=== PATIENT | male | born 1940 | race Caucasian/White ===

== ENCOUNTER 2020-10-14 13:41 | Emergency (ER) | payer OTHER, MEDICARE, SELFPAY ==
[2020-10-14] VITALS (43 sets, daily range): BP systolic 131–145; BP diastolic 58–66; PULSE 74–85; RESP 12–25; TEMP 36.5; O2SAT 93–98
--- NOTE | 2020-10-14 13:45 | RT.EKG_ITS ---
APPROVED REPORT Exam: Resting ECG Reason for Exam: confusion, weakness Patient Location: E HR:85 bpm ECG Measurements Heart Rate 85 AXIS MO 178 P 44 QRSd 86 QRS -37 QT 344 T 54 QTc 410 Conclusion Sinus rhythm...normal P axis, V-rate 60- 99 Left axis deviation...QRS axis (-30,-90) sinus rhythm at 85, left axis, TW flattening aVL, non-diagnostic EKG
--- NOTE | 2020-10-14 14:24 | W.ED.GENAD ---
Discharge Plan Disposition Patient Disposition: HOME Condition: Good Discharge Details Clinical Impression: URI (upper respiratory infection) Primary Care Provider: Lorelei Ramos ED Provider: Keagan Mcneal Home Meds and New Rx's Prescriptions: New doxycycline hyclate 100 mg capsule 100 mg PO BID 10 Days Qty: 20 RF: 0 Discharge Instructions Instructions: Upper Respiratory Infection (ED) Additional Instructions: At this time as we discussed together there is no clear evidence of pneumonia or urinary tract infection or other significant source of infectious etiology or cause of his intermittent abdominal pain. His hernia does not show signs of incarceration or strangulation at this time. He does have a mild upper respiratory infection which is likely viral in etiology. Covid test is negative. If he continues to have this and it transitions to his lungs he could develop an infectious pneumonia. Additionally we are still awaiting on the tick and Lyme disease panel for him. This will take a few days to come back. In the meantime please continue to monitor him closely. If he continues to have a fever over the next 24 to 48 hours I would recommend starting with doxycycline antibiotic. Otherwise I would hold off as there is no clear indication at this time. If you notice any worsening of your symptoms, or any new symptoms such as vomiting, diarrhea, fever, chills, shortness of breath, chest pain, numbness, weakness, or fainting , please return immediately to the emergency department for reevaluation. Please follow up with your primary care provider as soon as possible for reassessment and reevaluation. As always, it was a pleasure participating in your medical care today. Referrals: Lorelei Ramos [Primary Care Provider] - Discharge Data Discharge Date/Time-TO BE ENTERED AT DEPARTURE: 10/14/20 19:15 Medical Decision Making <Xochitl Koehler MD - Last Filed: 10/19/20 06:27> Randall Danielle is a 80 y/o man with h/o DM, severe alzheimers who presented to the emergency department with progressively worsening generalized weakness, apparent pain of unknown source, increased confusion, and fever 100.9 at home this am. Pt is pleasant, responds with one word answers on exam, which is at baseline according to Pt's caregiver who is at bedside. Mild TTP across lower abdomen. LCTAB. Unlcear etiology of fever. Concern for PNA, acute intra-abdominal process, UTI, other. Doubt PE, doubt ACS. Exam/hx at this time not c/w sepsis, acute aortic pathology, meningitis. EKG non-diagnostic. Plan for IV placement, screening labs, UA, CT chest/abd/pelv, IV fluid hydration. Will hold abx at this time awaiting source. If no source determined will send tick panel. Pt signed out to Dr. Mcneal at time of shift change with CT pending. Medical Records Medical records reviewed: Yes I reviewed the patient's medical records. Lab Data Lab results reviewed: Yes I reviewed the patient's lab results. Labs: 10/14/20 14:18 Blood Blood Culture - Pending 10/14/20 14:33 Blood Blood Culture - Pending Laboratory Tests Range/Units 10/14/20 10/14/20 10/14/20 14:33 14:33 14:35 WBC (4.4-10.8) 10^3/uL 13.96 H RBC (4.36-5.78) 10^6/uL 3.69 L Hgb (13.5-17.5) g/dL 11.4 L Hct (40.0-50.0) % 34.9 L MCV (80-95) fL 94.6 MCH (27.0-33.0) pg 30.9 MCHC (32.0-36.0) % 32.7 RDW (11.8-14.1) % 11.9 Plt Count (130-400) 10^3/uL 283 MPV (8.0-11.0) fL 9.9 Immature Gran % 0.4 Neutrophils % 74.1 Lymphocytes % 15.0 Monocytes % 7.2 Eosinophils % 2.9 Basophils % 0.4 Nucleated RBC % % 0 Absolute Neutrophils (1.2-6.7) 10^3/uL 10.34 H Absolute Lymphocytes (1.2-3.4) 10^3/uL 2.09 Absolute Monocytes (0.1-0.8) 10^3/uL 1.01 H Absolute Eosinophils (0.0-0.7) 10^3/uL 0.40 Absolute Basophils (0.0-0.2) 10^3/uL 0.06 VBG Lactate (0.6-1.4) mmol/L 2.7 H* Sodium (136-145) mmol/L Potassium (3.5-5.1) mmol/L Chloride (98-107) mmol/L Carbon Dioxide (21.0-32.0) mmol/L Anion Gap (3-11) mmol/L BUN (7-18) mg/dL Creatinine (0.70-1.30) mg/dL Estimated GFR/1.73 m2 (mL/min/1.73m2) Glucose (74-106) mg/dL Calcium (8.5-10.1) mg/dL Magnesium (1.8-2.4) mg/dL Total Bilirubin (0.2-1.0) mg/dL AST (15-37) U/L ALT (16-63) U/L Alkaline Phosphatase (46-116) U/L Troponin I (<0.06) ng/mL < 0.05 Total Protein (6.4-8.2) g/dL Albumin (3.4-5.0) g/dL Urine Color (Yellow) Urine Clarity (Clear) Urine pH (5-8) Ur Specific [place] (1.005-1.025) Urine Protein (Negative) mg/dL Urine Ketones (Negative) mg/dL Urine Blood (Negative) Urine Nitrite (Negative) Urine Bilirubin (Negative) Urine Urobilinogen (Up TO 0.2) EU/dL Ur Leukocyte Esterase (Negative) Urine RBC (0-2) HPF Urine WBC (0-5) HPF Ur Epithelial Cells (Negative) HPF Urine Crystals (Negative) HPF Urine Bacteria (Negative) HPF Urine Casts (Negative) LPF Urine Mucus (Negative) Ur Culture Indicated? Urine Glucose (Negative) mg/dL COVID-19 Source SARS-CoV-2 (PCR) (Negative) Range/Units 10/14/20 10/14/20 10/14/20 14:35 15:04 15:30 WBC (4.4-10.8) 10^3/uL RBC (4.36-5.78) 10^6/uL Hgb (13.5-17.5) g/dL Hct (40.0-50.0) % MCV (80-95) fL MCH (27.0-33.0) pg MCHC (32.0-36.0) % RDW (11.8-14.1) % Plt Count (130-400) 10^3/uL MPV (8.0-11.0) fL Immature Gran % Neutrophils % Lymphocytes % Monocytes % Eosinophils % Basophils % Nucleated RBC % % Absolute Neutrophils (1.2-6.7) 10^3/uL Absolute Lymphocytes (1.2-3.4) 10^3/uL Absolute Monocytes (0.1-0.8) 10^3/uL Absolute Eosinophils (0.0-0.7) 10^3/uL Absolute Basophils (0.0-0.2) 10^3/uL VBG Lactate (0.6-1.4) mmol/L Sodium (136-145) mmol/L 139 Potassium (3.5-5.1) mmol/L 4.9 Chloride (98-107) mmol/L 101 Carbon Dioxide (21.0-32.0) mmol/L 27.7 Anion Gap (3-11) mmol/L 10.3 BUN (7-18) mg/dL 24 H Creatinine (0.70-1.30) mg/dL 1.4 H Estimated GFR/1.73 m2 (mL/min/1.73m2) 49.01 Glucose (74-106) mg/dL 324 H Calcium (8.5-10.1) mg/dL 9.2 Magnesium (1.8-2.4) mg/dL 1.8 Total Bilirubin (0.2-1.0) mg/dL 0.2 AST (15-37) U/L 12 L ALT (16-63) U/L 19 Alkaline Phosphatase (46-116) U/L 66 Troponin I (<0.06) ng/mL Total Protein (6.4-8.2) g/dL 7.9 Albumin (3.4-5.0) g/dL 3.2 L Urine Color (Yellow) Yellow Urine Clarity (Clear) Clear Urine pH (5-8) 5.5 Ur Specific [place] (1.005-1.025) 1.025 Urine Protein (Negative) mg/dL 30 H Urine Ketones (Negative) mg/dL Negative Urine Blood (Negative) Trace-lysed H Urine Nitrite (Negative) Negative Urine Bilirubin (Negative) Negative Urine Urobilinogen (Up TO 0.2) EU/dL 0.2 Ur Leukocyte Esterase (Negative) Negative Urine RBC (0-2) HPF 0-2 Urine WBC (0-5) HPF 0-2 Ur Epithelial Cells (Negative) HPF Rare Urine Crystals (Negative) HPF Negative Urine Bacteria (Negative) HPF Negative Urine Casts (Negative) LPF 0-2 Hyaline Urine Mucus (Negative) Trace Ur Culture Indicated? No Urine Glucose (Negative) mg/dL 500 H COVID-19 Source Nasal/Nares SARS-CoV-2 (PCR) (Negative) Negative ECG Data Attestation: I personally reviewed and interpreted this ECG (s) as follows: Interpretation: EKG shoiws sinus rhythm at 85, left axis, TW flattening aVL, non-diagnostic EKG <Keagan Mcneal, DO - Last Filed: 10/14/20 19:13> Patient was signed out by my colleague Xochitlchristy Koehler. Please refer to her HPI, physical exam assessment and plan. At time of signout we are pending labs and imaging results. For personal reassessment of family, patient, and caregiver the patient has had increased confusion and weakness over the last few days. He was complaining of intermittent abdominal pain over the last week. He had a fever of 100.9 at home, and was given Tylenol then however the patient has had no fever since then. The patient is normally per her caregiver nonverbal for the most part, but will occasionally answer yes and no. He has severe Alzheimer. Repeat exam shows no evidence of strangulation or incarceration of his hernia. No abdominal tenderness at all at this time. He does have a mild cough, CT scan is negative for pneumonia, or acute intra-abdominal process. Labs show mildly elevated white count, lactate initially was high at 2.7 and down to 2.1 on reassessment. BUN/creatinine are slightly elevated, concerning for potential mild dehydration which certainly may be a component of his symptoms. Repeat exam shows no meningeal signs. No clinical evidence of meningitis. Troponin normal. Urinalysis shows no evidence of urinary tract infection. Covid test was negative. We did send a tick panel there pending the results. On reassessment the patient's vital signs remained stable. No tachycardia, no fever, no source of infection. The patient does not meet criteria for Sirs or septic shock clinically. Patient stable for discharge at this time. I had a long discussion with both the caregiver and the were at bedside. Patient will be discharged. I suspect that if the patient continues to have his mild cough and URI this may develop into a pneumonia. We will send him home with a prescription for doxycycline only to take if he redevelops his fever or has continued worsening of the cough. I have extensively reviewed the treatment plan and discharge instructions with the patient. I have addressed all patient concerns at this time. The patient was made aware of what symptoms to monitor for that would warrant a return to the emergency department. Discussed the plan with the patient, they demonstrate verbal understanding and agreement with our assessment and plan at this time. The documentation in this chart was dictated using [employer] dictation software. Please excuse any dictation errors. FINDINGS: Lungs: Subpleural atelectasis of the dependent portions of the lungs. No consolidation. Pleural spaces: Unremarkable. No pneumothorax. No pleural effusion. Heart: Coronary artery calcifications. Mediastinal space: Small hiatal hernia. Aorta: Unremarkable. No aortic aneurysm. Lymph nodes: Unremarkable. No enlarged lymph nodes. Bones/joints: Unremarkable. No acute fracture. Soft tissues: Unremarkable. IMPRESSION: No acute abnormality identified. FINDINGS: Liver: Normal. No mass. Gallbladder and bile ducts: Normal. No calcified stones. No ductal dilation. Pancreas: Normal. No ductal dilation. Spleen: Normal. No splenomegaly. Adrenal glands: Normal. No mass. Kidneys and ureters: Normal. No hydronephrosis. Stomach and bowel: Above average stool throughout the colon. No evidence of intestinal perforation or obstruction. Previous bowel resection. Appendix: No evidence of appendicitis. Intraperitoneal space: Unremarkable. No free air. No significant fluid collection. Vasculature: Aorta demonstrates mild atherosclerotic calcification. Lymph nodes: Unremarkable. No enlarged lymph nodes. Urinary bladder: Left bladder diverticula. Reproductive: Unremarkable as visualized. Bones/joints: Unremarkable. No acute fracture. Soft tissues: Fat-containing right inguinal hernia without incarceration. IMPRESSION: No acute abnormality identified. Thank you for allowing us to participate in the care of your patient Dictated and Authenticated by: Masoud Weathers MD 10/14/2020 6:14 PM Eastern Time ([place] & [place]) HPI <Xochitl Koehler MD - Last Filed: 10/19/20 06:27> General Mode of arrival: ambulatory. Date/Time Provider Initiated Documentation: 10/14/20 14:09. Limitations to Documentation: physical limitation (severe alzheimers). Information obtained by: patient, RN/MD (caregiver), RN notes reviewed and old records reviewed. HPI Narrative: Randall Danielle is a 80 y/o man with h/o DM, severe alzheimers who presents to the emergency department with chief complaint progressively worsening generalized weakness over past few days. History is provided by caregiver who accompanies him. She reports that Pt has appeared to be grimacing in pain at times, unclear source though she is concerned pain may be from lower abdomen. Pt also noted to have fever 100.9 this am. Has had recent dry cough. Fully vaccinated against covid. Pt uses one word sentences to communicate (i.e. yes, no). She reports that appears to be at mental baseline at this time. No focal weakness noted, no vomiting, no diarrhea, no constipation, no SOB, no rash. Typically walks on his own but in the past day or so has been leaning on caregivers for assistance while walking. Somewhat decreased appetite. No known trauma or tick bite. Related Data Home Medications Medication Instructions Recorded Confirmed doxycycline hyclate 100 mg PO BID 10 Days #20 cap 10/14/20 Previous Rx's Medication Instructions Recorded doxycycline hyclate 100 mg PO BID 10 Days #20 cap 10/14/20 Allergies Allergy/AdvReac Type Severity Reaction Status Date / Time No Known Allergies Allergy Unverified 10/14/20 13:55 General Stated Complaint: AMS/LOC SANJU: 2 Review of Systems <Xochitl Koehler MD - Last Filed: 10/19/20 06:27> Narrative: ROS could not be obtained due to severe alzheimers, please see HPI for ROS per caregiver. PFSH <Xochitl Koehler MD - Last Filed: 10/19/20 06:27> Social History Smoking risk assessment performed?: No Exam <Xochitl Koehler MD - Last Filed: 10/19/20 06:27> Narrative Exam Narrative: Constitutional: well and [id number], pleasant, one word responses to questions, does not answer all questions. No distress. HENT: head atraumatic/normocephalic/normal inspection, mucous membranes moist, posterior pharynx without edema, erythema, lesion. Handling secretions without issue. Eyes: conjunctiva normal, sclera normal, pupils 3mm b/l Neck: no stridor, normal ROM, trachea midline Chest: normal inspection, no TTP Resp: normal work of breathing, LCTAB Cardio: normal rate, normal rhythm, no murmur appreciated GI: abdomen soft, no apparent TTP, non-distended : normal inspection of the penis and scrotum, testicles not TTP without edema/mass/overlying skin changes Back: normal inspection, no rash Skin: warm, dry, normal color, no rash Neuro: alert, not altered, grossly non-focal, normal tone, moving all extremities equally Ext: +1 edema b/l LEs Course <Xochitl Koehler MD - Last Filed: 10/19/20 06:27> Vital Signs Vital signs: Vital Signs Temperature 36.5 C 10/14/20 13:46 Pulse 85 10/14/20 13:46 Respiratory Rate 17 10/14/20 13:46 Blood Pressure 145/62 H 10/14/20 13:46 Pulse Oximetry 96 10/14/20 13:46 Temperature 36.5 C 10/14/20 13:46 Temperature Source Tympanic 10/14/20 13:46 Pulse 85 10/14/20 13:46 Respiratory Rate 17 10/14/20 13:46 Blood Pressure 145/62 H 10/14/20 13:46 Pulse Oximetry 96 10/14/20 13:46 Oxygen Delivery Method Room Air 10/14/20 13:46 Oxygen Flow Rate 0 10/14/20 13:46 Comment 10/14/20 13:46 Lab/Test Results Lab/Test Results: 10/14/20 14:18 Blood Blood Culture - Pending 10/14/20 14:18 Blood Blood Culture - Pending Sign Out <Xochitl Koehler MD - Last Filed: 10/19/20 06:27> Sign Out Data: Sign Out Comment: Pt signed out to Dr. Mcneal at time of shift change with CT pending. Last updated by Xochitl Koehler MD at 10/14/20 16:23
[2020-10-14 14:43] LABS: Lactate 2.7 mmol/L (0.6-1.4)
[2020-10-14 14:47] LABS: Abs Immature Grans 0.05 10^3/uL (0.0-0.06); Absolute Basophil Count 0.06 10^3/uL (0.0-0.2); Absolute Monocyte Count 1.01 10^3/uL (0.1-0.8); Absolute Neutrophil Count 10.34 10^3/uL (1.2-6.7); Basophils % 0.4; Eosinophils % 2.9; HCT 34.9 % (40.0-50.0); HGB 11.4 g/dL (13.5-17.5); Immature Grans % 0.4; MCH 30.9 pg (27.0-33.0); MCHC 32.7 % (32.0-36.0); MCV 94.6 fL (80-95); MPV 9.9 fL (8.0-11.0); Monocytes % 7.2; Neutrophils % 74.1; Nucleated RBC 0 %; Platelet Count 283 10^3/uL (130-400); RBC 3.69 10^6/uL (4.36-5.78); RDW 11.9 % (11.8-14.1); RDW-SD 41.4 fL; WBC 13.96 10^3/uL (4.4-10.8)
[2020-10-14 14:48] LABS: Absolute Lymphocyte Count 2.09 10^3/uL (1.2-3.4)
[2020-10-14 15:16] LABS: Bilirubin Negative (Negative); Blood Trace-lysed (Negative); Clarity Clear (Clear); Glucose 500 mg/dL (Negative); Ketones Negative (Negative); Leukocyte Esterase Negative (Negative); Nitrite Negative (Negative); Specific Gravity 1.025 (1.005-1.025); Urobilinogen 0.2 EU/dL (Up TO 0.2); pH 5.5 (5-8)
[2020-10-14 15:23] LABS: Bacteria Negative HPF (Negative); C & S Indicated? No; Casts 0-2 Hyaline LPF (Negative); Crystals Negative HPF (Negative); Epithelial Cells Rare HPF (Negative); Mucus Trace (Negative); RBC 0-2 HPF (0-2); WBC 0-2 HPF (0-5)
[2020-10-14 15:27] LABS: ALT 19 U/L (16-63); AST 12 U/L (15-37); Albumin 3.2 g/dL (3.4-5.0); Alkaline Phosphatase 66 U/L (46-116); Anion Gap 10.3 mmol/L (3-11); BUN 24 mg/dL (7-18); Bilirubin, Total 0.2 mg/dL (0.2-1.0); CO2 27.7 mmol/L (21.0-32.0); CREATININE 1.4 mg/dL (0.70-1.30); Calcium 9.2 mg/dL (8.5-10.1); Chloride 101 mmol/L (98-107); Estimated GFR 49.01 (mL/min/1.73m2); Glucose 324 mg/dL (74-106); Magnesium 1.8 mg/dL (1.8-2.4); Potassium 4.9 mmol/L (3.5-5.1); Sodium 139 mmol/L (136-145); Total Protein 7.9 g/dL (6.4-8.2)
--- NOTE | 2020-10-14 15:30 | DI.CT_ITS ---
Exam(s) CT CHEST/ABD/PEL W EXAM: CT CHEST/ABD/PEL W CLINICAL HISTORY: fever, cough, abdominal pain TECHNIQUE: CT examination of the chest, abdomen, and pelvis was performed utilizing intravenous inf usion of 100 cc of Omnipaque 350. COMPARISON: No exams were available for comparison FINDINGS: Lungs are clear. No pleural effusion. No pleural based mass. Cardiac pacemaker noted. Coronary artery calcification noted. No mediastinal or hilar adenopathy. No axillary or supraclavicular adenopathy. Tracheobronchial roula e appears intact. No evidence of pulmonary embolic disease. Unremarkable appearance of thoracic aorta and major branch vessels. The liver appears normal with no focal hepatic lesion identified. Spleen is unremarkable in appearance. Pancreas appears intact. Adrenals appear normal. Kidneys are unremarkable in appearance with no renal mass, hydronephrosis, or nephrolithiasis. Abdominal aorta and major visceral branches appear intact. No focal bowel pathology. Appendix is not specifically identified but there is no evidence of append icitis. No evidence of diverticulitis. No abdominal or pelvic adenopathy. No significant abdominal wall hernia. No focal bony lesion identified on scanning of the chest, abdomen, and pelvis. IMPRESSION: Negative CT of the chest, abdomen, and pelvis. RADIATION DOSE DELIVERED: 1,054.65mGy.cm Total DLP 1,054.65mGy.cm Total DLP RADIATION OPTIMIZATION: All CT scans at this facility use at least one of these dose optimization te chniques: automated exposure control; mA and/or kV adjustment per patient size (includes targeted exa ms where dose is matched to clinical indication); or iterative reconstruction.
[2020-10-14 15:32] LABS: Troponin I < 0.05 ng/mL (<0.06)
[2020-10-14 15:45] LABS: Source Nasal/Nares
[2020-10-14] MEDS: Normal Saline 500 ML IV (15:45)
[2020-10-14 16:38] LABS: COVID-19 PCR Negative (Negative)
[2020-10-14] MEDS: Omnipaque 350 MG/ML 100 ML BTL IJ (16:57)
[2020-10-14] MEDS: Normal Saline Flush 10 ML SYR IVP (16:58)
[2020-10-14] MEDS: Normal Saline - Diluent 50 ML VIAL IV (16:58)
--- NOTE | 2020-10-14 17:27 | NUR.NOTE ---
1726 repeat Troponin sent to lab.
[2020-10-14 17:45] LABS: Troponin I < 0.05 ng/mL (<0.06)
--- NOTE | 2020-10-14 18:15 | DI.VRAD_ITS ---
PROCEDURE INFORMATION: Exam: CT Chest With Contrast; Diagnostic Exam date and time: 10/14/2020 3:45 PM Age: 80 years old Clinical indication: Abdominal tenderness and fever; Cough TECHNIQUE: Imaging protocol: Diagnostic computed tomography of the chest with contrast. 3D rendering (Not supervised by radiologist): MIP and/or 3D reconstructed images were created by the technologist. Radiation optimization: All CT scans at this facility use at least one of these dose optimization techniques: automated exposure control; mA and/or kV adjustment per patient size (includes targeted exams where dose is matched to clinical indication); or iterative reconstruction. Contrast material: OMNIPAQUE 350; Contrast volume: 100 ml; Contrast route: INTRAVENOUS (IV); COMPARISON: No relevant prior studies available. FINDINGS: Lungs: Subpleural atelectasis of the dependent portions of the lungs. No consolidation. Pleural spaces: Unremarkable. No pneumothorax. No pleural effusion. Heart: Coronary artery calcifications. Mediastinal space: Small hiatal hernia. Aorta: Unremarkable. No aortic aneurysm. Lymph nodes: Unremarkable. No enlarged lymph nodes. Bones/joints: Unremarkable. No acute fracture. Soft tissues: Unremarkable. IMPRESSION: No acute abnormality identified. PROCEDURE INFORMATION: Exam: CT Abdomen And Pelvis With Contrast Exam date and time: 10/14/2020 3:45 PM Age: 80 years old Clinical indication: Abdominal tenderness and fever; Cough TECHNIQUE: Imaging protocol: Computed tomography of the abdomen and pelvis with contrast. 3D rendering (Not supervised by radiologist): MIP and/or 3D reconstructed images were created by the technologist. Radiation optimization: All CT scans at this facility use at least one of these dose optimization techniques: automated exposure control; mA and/or kV adjustment per patient size (includes targeted exams where dose is matched to clinical indication); or iterative reconstruction. Contrast material: OMNIPAQUE 350; Contrast volume: 100 ml; Contrast route: INTRAVENOUS (IV); COMPARISON: No relevant prior studies available. FINDINGS: Liver: Normal. No mass. Gallbladder and bile ducts: Normal. No calcified stones. No ductal dilation. Pancreas: Normal. No ductal dilation. Spleen: Normal. No splenomegaly. Adrenal glands: Normal. No mass. Kidneys and ureters: Normal. No hydronephrosis. Stomach and bowel: Above average stool throughout the colon. No evidence of intestinal perforation or obstruction. Previous bowel resection. Appendix: No evidence of appendicitis. Intraperitoneal space: Unremarkable. No free air. No significant fluid collection. Vasculature: Aorta demonstrates mild atherosclerotic calcification. Lymph nodes: Unremarkable. No enlarged lymph nodes. Urinary bladder: Left bladder diverticula. Reproductive: Unremarkable as visualized. Bones/joints: Unremarkable. No acute fracture. Soft tissues: Fat-containing right inguinal hernia without incarceration. IMPRESSION: No acute abnormality identified. Dictated and Authenticated by: Masoud Weathers MD. Ordering:CARLOS Leung MD
[2020-10-14 18:33] LABS: Lactate 2.1 mmol/L (0.6-1.4)
[2020-10-16 11:27] LABS: Lyme Ab w Rflx to Lyme Confirm Negative (Negative)
[2020-10-17 03:51] LABS: Anaplasma phagocytophilum Negative (Negative); B. miyamotoi PCR Negative (Negative); Babesia divergens/MO-1 Negative (Negative); Babesia duncani Negative (Negative); Babesia microti Negative (Negative); Ehrlichia chaffeensis Negative (Negative); Ehrlichia ewingii/canis Negative (Negative); Ehrlichia muris eauclairensis Negative (Negative)
== END 2020-10-14 19:15 | disposition home or self-care (01) ==
PROVIDERS: Student in an Organized Health Care Education/Training Program; Emergency Provider Student in an Organized Health Care Education/Training Program; PCP Occupational Therapist
DX: J06.9 Acute upper respiratory infection, unspecified (principal); R50.9 Fever, unspecified; R53.1 Weakness; R41.0 Disorientation, unspecified; Z20.822 Contact with and (suspected) exposure to COVID-19; Z03.818 Encounter for observation for suspected exposure to other biological agents ruled out
CPT/HCPCS: 36415; 51701; 74177; 80053; 87040; 87635; 87798; 93005; 96360; 99285; 71260; 81003; 81015; 83605; 83735; 84484; 85025; 86618; 93010; J3490